=== PATIENT | male | born 1960 | race Caucasian/White ===

== ENCOUNTER → 2023-12-07 | Outpatient (CLI) | payer OTHER ==
[~2023-12-07] MED LIST: BACTRIM DS 8001 TA1 PO; CIPRO500 MG PO; FLEXERIL10 MG PO; NKHM; NORCO 10-325 T1 EACH PO; PREDNICOT20 MG PO; VIBRAMYCIN100 MG PO; VICODIN 5/500 505 MG PO
== END | disposition home or self-care (01) ==
LOC: RESCLI 13:37
PROVIDERS: ATTEND Internal Medicine
DX: R73.09 Other abnormal glucose (principal); I10 Essential (primary) hypertension; I12.9 Hypertensive chronic kidney disease with stage 1 through stage 4 chronic kidney disease, or unspecified chronic kidney disease; N18.31 Chronic kidney disease, stage 3a; E78.5 Hyperlipidemia, unspecified; Z87.891 Personal history of nicotine dependence; Z98.890 Other specified postprocedural states; Z79.899 Other long term (current) drug therapy